=== PATIENT | male | born 1965 | race American Indian/Alaskan Native ===

== ENCOUNTER 2017-07-27 12:37 | Emergency (ER) | payer MEDICARE, MEDICAID ==
[2017-07-27 13:05] VITALS: BP 150/90; PULSE 98; RESP 18; TEMP 97.8; O2SAT 98
--- NOTE | 2017-07-27 14:00 | C.PDOC ---
History Of Present Illness 52 yo male come in for evaluation of Right shoulder pain gradually developed for past 2 weeks. Pt describes pain as localized over Right shoulder, worse with Right arm movement. Otherwise, pt denies known direct trauma or injury, fever, chills, skin changes, denies CP, SOB, dyspnea, diaphoresis, palpitation, cough, denies weakness, sensory or vascular deficits to Right arm. Ambulate to Ed for evaluation, not in any apparent distress. Time Seen by Provider: 07/27/17 13:19 Chief Complaint (Nursing): Upper Extremity Problem/Injury History Per: Patient Onset/Duration Of Symptoms: Gradual Past Medical History Reviewed: Historical Data, Nursing Documentation, Vital Signs Vital Signs: Last Vital Signs Temp 97.8 F 07/27/17 13:02 Pulse 98 H 07/27/17 13:02 Resp 18 07/27/17 13:02 BP 150/90 07/27/17 13:02 Pulse Ox 98 07/27/17 14:03 - Medical History PMH: Asthma, Depression, HTN Family History: States: No Known Family Hx - Social History Hx Tobacco Use: Yes Hx Alcohol Use: No Hx Substance Use: No - Immunization History Hx Tetanus Toxoid Vaccination: No Hx Influenza Vaccination: Yes Hx Pneumococcal Vaccination: Yes Review Of Systems Except As Marked, All Systems Reviewed And Found Negative. Constitutional: Negative for: Fever, Chills ENT: Negative for: Throat Pain Cardiovascular: Negative for: Chest Pain, Palpitations, Light Headedness Respiratory: Negative for: Cough, Shortness of Breath, Wheezing Gastrointestinal: Negative for: Vomiting, Abdominal Pain, Diarrhea Musculoskeletal: Positive for: Shoulder Pain (Right) Skin: Negative for: Rash, Bruising Neurological: Negative for: Weakness, Numbness Physical Exam - Physical Exam Appears: Well, Non-toxic, No Acute Distress Skin: Normal Color, Warm, No Rash, No Ecchymosis Head: Normacephalic Eye(s): bilateral: PERRL Neck: Trachea Midline, No Midline Cervical Tenderness, No Paracervical Tenderness, No Step Off Deformity, Supple Chest: Symmetrical, No Deformity Cardiovascular: Rhythm Regular, No Murmur, No JVD Respiratory: No Decreased Breath Sounds, No Accessory Muscle Use, No Stridor, No Wheezing Extremity: Normal ROM (mild discomfort to Right shoulder extension/abbduction.) , Tenderness (over superior aspect Right shoulder), No Deformity, No Swelling Neurological/Psych: Oriented x3, Normal Speech, Normal Motor, Normal Sensation, Normal Reflexes ED Course And Treatment O2 Sat by Pulse Oximetry: 98 Pulse Ox Interpretation: Normal - Other Rad Right shoulder X-Ray: Interpreted by Me, Viewed By Me Interpretation: no acute fx or dislocation Progress Note: On re-evaluation, pt is afebrile, hemodynamicaly stable. non- toxic. PUlseOx 98% RA. neck: Supple, (-)JVD, (-) carotid bruits B/L. Lungs: CTA B/L, BS equal B/L. CVS: (+)S1, S2, reg. RUE: exam c/w mild tenderness superior aspect Right shoulder. FAROM, no neurovascular deficits, no deformity. Imaging review and appears normal. Pt has clinical findings c/w Right shoulder sprain vs tendonitis. Pt advised. ref. to f/u with PMD. Ortho in 2-3 days for re-eval. return to ED if any worsening or new changes. Disposition Counseled Patient/Family Regarding: Studies Performed, Diagnosis, Need For Followup, Rx Given - Disposition Referrals: Hector Johnson III, MD [Staff Provider] - Rj Rosales MD [Staff Provider] - Disposition: HOME/ ROUTINE Disposition Time: 15:14 Condition: STABLE Additional Instructions: Sling for 1-2 weeks Light duty to Right arm, avoid arm lifting Take medication as need for pain Follow up with PMD, Orthopedist in 2-3 days for re-evaluation. return to ED if any worsening or new changes. Instructions: Shoulder Sprain, Tendonitis Forms: [facility] (Nepalese) - Clinical Impression Clinical Impression: Shoulder arthralgia
--- NOTE | 2017-07-27 15:37 | RAD ---
PROCEDURE: Radiographs of the Right Shoulder HISTORY: pain COMPARISON: Chest x-ray performed 09/15/15 FINDINGS: BONES: No acute displaced fracture. The distal clavicle and underlying ribs appear intact. JOINTS: No acute dislocation. SOFT TISSUES: Soft tissues appear unremarkable. No evidence of radiopaque foreign body. IMPRESSION: No acute displaced fracture or dislocation evident. If symptoms persist or if there is continued clinical concern, x-ray follow-up in 7-10 days should be considered.
== END 2017-07-27 16:07 | disposition home or self-care (01) ==
LOC: C.ER 12:37
DX: M25.511 Pain in right shoulder (principal); I10 Essential (primary) hypertension; Z72.0 Tobacco use